=== PATIENT | female | born 1990 | race Caucasian/White ===

== ENCOUNTER 2019-09-28 20:51 | Outpatient (CLI) | payer SELFPAY ==
[2019-09-28] MEDS ORDERED: LACTATED RINGERS 1,000 ML IV ONE (21:14)
[2019-09-28] MEDS ORDERED: BETAMET ACET/BETAMET NA PH 6 MG/ML INJ 5 ML MDV IM ONE (21:15)
[2019-09-28 21:43] VITALS: BP 113/61
== END 2019-09-28 21:43 | disposition home or self-care (01) ==
LOC: TRG 20:51
PROVIDERS: ATTEND Obstetrics & Gynecology
DX: O47.03 False labor before 37 completed weeks of gestation, third trimester (principal); Z3A.33 33 weeks gestation of pregnancy
CPT/HCPCS: 96372; J0702

== ENCOUNTER 2019-09-29 21:28 | Outpatient (CLI) | payer SELFPAY ==
[2019-09-29 22:00] VITALS: BP 106/55
[2019-09-29] MEDS ORDERED: BETAMET ACET/BETAMET NA PH 6 MG/ML INJ 5 ML MDV IM ONE ×2 (22:15→23:00)
== END 2019-09-29 22:35 | disposition home or self-care (01) ==
LOC: TRG 21:28
PROVIDERS: ATTEND Obstetrics & Gynecology
DX: O47.03 False labor before 37 completed weeks of gestation, third trimester (principal); Z3A.33 33 weeks gestation of pregnancy
CPT/HCPCS: 96372; J0702

== ENCOUNTER 2019-10-26 20:32 | Inpatient (IN) | payer OTHER ==
[2019-10-26] MEDS ORDERED: LACTATED RINGERS 1,000 ML IV ONE (22:23)
[2019-10-26 23:50] LABS: Hemoglobin 10.5 gm/dl (10.1-14.3); Mean Corpuscular HGB Conc 34 % (30-34); Mean Corpuscular Volume 83 fl (79-97); Platelet Count 330 K/mm3 (140-440); Red Blood Count 3.72 M/mm3 (3.65-5.03); Red Cell Distribution Width 13.9 % (13.2-15.2)
[2019-10-26] MEDS ORDERED: DINOPROSTONE 10 MG VAG SUPP VG ONE (23:54)
--- NOTE | 2019-10-27 05:23 | History and Physical Report ---
History of Present Illness Date of examination: 10/26/19 Date of admission: 10/26/19 20:32 Chief complaint: 29 y/o presents at 37 wks for an induction r/t cholestasis. Pt admits to active FM and denies vag bleeding. History of present illness: 29 y/o presents at 37 wks for an induction r/t cholestasis. PNC was initiated at [facility] at 8.2 wks. Pt has a hx of hypothyroidism and she is Rubella NI. She admits to active FM and denies vag bleeding. Labs: A pos AB screen neg, RPR NR, HBsAG NR, Rubella NI, HIV neg, stephany/GC neg, H&H 9.8/30.1, pLT 296, 1 hr GTT 117, Pap ASCUS with neg HPV, Total bile acid 52.8 Past History Past Medical History: other (hypothyroidism, heart murmur ) Past Surgical History: no surgical history COAL HAULER History: abnormal PAP smear Family/Genetic History: none Social history: no significant social history - Obstetrical History Expected Date of Delivery: 11/16/19 Actual Gestation: 37 Week(s) 1 Day(s) : 3 Para: 2 Hx # Term Pregnancies: 2 Number of Pregnancies: 0 Spontaneous Abortions: 0 Induced : 0 Number of Living Children: 2 #1 Infant Gender: Male Method of Delivery: Vaginal Complications: none #2 Infant Gender: Male Method of Delivery: Vaginal Complications: none Medications and Allergies Allergies Allergy/AdvReac Type Severity Reaction Status Date / Time No Known Allergies Allergy Verified 09/28/19 21:14 Home Medications Medication Instructions Recorded Confirmed Last Taken Type Ibuprofen [Motrin 600 MG tab] 600 mg PO Q6H #30 tablet 02/26/14 02/06/16 Unknown Rx oxyCODONE /ACETAMINOPHEN [Percocet 2 tab PO Q4H PRN #30 tablet 02/26/14 02/06/16 Unknown Rx 5/325 mg] Ibuprofen [Motrin 800 MG tab] 800 mg PO Q8HR PRN #30 tablet 02/06/16 Unknown Rx oxyCODONE /ACETAMINOPHEN [Percocet 2 tab PO Q6HR PRN #30 tablet 02/06/16 Unknown Rx 5/325] Ferrous Sulfate [Feosol 325 MG tab] 325 mg PO BID #60 tablet 02/07/16 Unknown Rx Active Meds: Active Medications Ferrous Sulfate (Feosol) 325 mg PO BID ISA Lactated Ringer's (Lactated Ringers) 1,000 mls @ 125 mls/hr IV BOLUS ONE Stop: 10/27/19 06:22 Last Admin: 10/27/19 00:27 Dose: 125 mls/hr Documented by: Review of Systems All systems: negative - Vital Signs Vital signs: Vital Signs Pulse BP 65 119/60 10/26/19 22:45 10/26/19 22:45 Temp Pulse Resp BP Pulse Ox 97.9 F 62 18 99/50 10/27/19 01:50 10/27/19 04:17 10/27/19 01:50 10/27/19 04:17 - Physical Exam Breasts: Positive: normal Abdomen: Positive: normal appearance, soft Genitourinary (Female): Positive: normal external genitalia, normal perenium Vulva: both: normal Vagina: Positive: normal moisture Uterus: Positive: enlarged Anus/Rectum: Positive: normal perianal skin Extremities: Positive: normal - Obstetrical FHR: category 1 Uterine Contraction Monitor Mode: External Cervical Dilatation: 1 (per nurse) Cervical Effacement Percentage: 25 station: -3 Uterine Contraction Frequency (min): q Uterine Contraction Pattern: Irregular Uterine Tone Measurement Phase: Resting Uterine Contraction Intensity: Mild Results Result Diagrams: 10/26/19 23:15 All other labs normal. Assessment and Plan A: IUP @ 37wks Cholestasis Hypothyroidism Rubella NI GBS unknown P: Admit to L&D for cervidil induction Continue monitoring Expectant Mtg Tx GBS per hosp protocal Rubella vacine PP POC agrees with plan - Patient Problems (1) IUP (intrauterine ), incidental Current Visit: Yes Status: Acute (2) Cholestasis during Current Visit: Yes Status: Acute (3) Hypothyroidism affecting Current Visit: Yes Status: Acute (4) GBS screening not performed Current Visit: Yes Status: Acute
[2019-10-27] MEDS: LACTATED RINGERS 1,000 ML IV SCH ×2 (06:59→11:03)
[2019-10-27] MEDS: FERROUS SULFATE 325 MG TAB PO SCH ×2 (10:08→23:14)
--- NOTE | 2019-10-27 12:48 | Progress Note ---
Assessment and Plan - Patient Problems (1) Cholestasis during Current Visit: Yes Status: Acute Plan to address problem: Give pt lunch Initiate Cytotec 50 mg po q 4 hrs as tolerated, one hour post cervidil removal Pain meds as desired Anticipate (2) Hypothyroidism affecting Current Visit: Yes Status: Acute Plan to address problem: Resume synthyroid PP Subjective - Subjective Date of service: 10/27/19 Principal diagnosis: IOL Interval history: See admission H & P Patient reports: movement normal, no new complaints, no loss of fluid, no vaginal bleeding, no contractions Objective - Vital Signs Vital Signs: Vital Signs - 12hr 10/27/19 10/27/19 10/27/19 00:47 01:16 01:47 Temperature Pulse Rate 70 66 62 Respiratory Rate Blood Pressure 103/50 100/58 107/55 O2 Sat by Pulse Oximetry 10/27/19 10/27/19 10/27/19 01:50 02:16 03:45 Temperature 97.9 F Pulse Rate 60 68 Respiratory 18 Rate Blood Pressure 108/65 100/56 O2 Sat by Pulse Oximetry 10/27/19 10/27/19 10/27/19 03:46 04:17 06:55 Temperature 98.2 F Pulse Rate 66 62 Respiratory 18 Rate Blood Pressure 93/50 99/50 O2 Sat by Pulse Oximetry 10/27/19 10/27/19 10/27/19 07:06 07:52 07:54 Temperature 99 F Pulse Rate 90 58 L Respiratory Rate Blood Pressure 121/57 O2 Sat by Pulse 98 Oximetry 10/27/19 10/27/19 10/27/19 07:57 08:02 08:07 Temperature Pulse Rate 62 70 76 Respiratory Rate Blood Pressure O2 Sat by Pulse 98 98 98 Oximetry 10/27/19 10/27/19 10/27/19 08:16 08:21 08:26 Temperature Pulse Rate 80 78 60 Respiratory Rate Blood Pressure O2 Sat by Pulse 100 98 97 Oximetry 10/27/19 10/27/19 10/27/19 08:31 08:36 08:41 Temperature Pulse Rate 80 90 61 Respiratory Rate Blood Pressure O2 Sat by Pulse 98 98 98 Oximetry 10/27/19 10/27/19 10/27/19 08:46 08:51 08:56 Temperature Pulse Rate 67 91 H 68 Respiratory Rate Blood Pressure O2 Sat by Pulse 97 97 98 Oximetry 10/27/19 10/27/19 10/27/19 09:01 09:06 09:11 Temperature Pulse Rate 69 65 65 Respiratory Rate Blood Pressure O2 Sat by Pulse 97 98 98 Oximetry 10/27/19 10/27/19 10/27/19 09:16 09:21 09:26 Temperature Pulse Rate 62 98 H 68 Respiratory Rate Blood Pressure O2 Sat by Pulse 97 97 97 Oximetry 10/27/19 10/27/19 10/27/19 09:31 09:36 09:41 Temperature Pulse Rate 65 65 73 Respiratory Rate Blood Pressure O2 Sat by Pulse 98 98 99 Oximetry 10/27/19 10/27/19 10/27/19 09:46 09:51 09:56 Temperature Pulse Rate 72 76 63 Respiratory Rate Blood Pressure O2 Sat by Pulse 99 98 98 Oximetry 10/27/19 10/27/19 10/27/19 10:01 10:06 10:11 Temperature Pulse Rate 58 L 68 60 Respiratory Rate Blood Pressure O2 Sat by Pulse 98 97 98 Oximetry 10/27/19 10/27/19 10/27/19 10:16 10:21 10:26 Temperature Pulse Rate 59 L 61 75 Respiratory Rate Blood Pressure O2 Sat by Pulse 98 98 99 Oximetry 10/27/19 10/27/19 10/27/19 10:31 10:36 10:41 Temperature Pulse Rate 60 65 67 Respiratory Rate Blood Pressure O2 Sat by Pulse 98 98 98 Oximetry 10/27/19 10/27/19 10/27/19 10:46 10:51 10:57 Temperature Pulse Rate 79 99 H 95 H Respiratory Rate Blood Pressure 106/64 O2 Sat by Pulse 98 99 99 Oximetry 10/27/19 10/27/19 10/27/19 11:02 11:07 11:12 Temperature Pulse Rate 75 71 77 Respiratory Rate Blood Pressure O2 Sat by Pulse 97 98 98 Oximetry 10/27/19 10/27/19 10/27/19 11:17 11:22 11:27 Temperature Pulse Rate 63 68 61 Respiratory Rate Blood Pressure O2 Sat by Pulse 98 98 98 Oximetry 10/27/19 10/27/19 10/27/19 11:32 11:37 11:42 Temperature Pulse Rate 68 74 63 Respiratory Rate Blood Pressure O2 Sat by Pulse 97 98 97 Oximetry 10/27/19 10/27/19 10/27/19 11:46 11:47 11:52 Temperature Pulse Rate 63 65 75 Respiratory Rate Blood Pressure 112/68 O2 Sat by Pulse 98 99 Oximetry 10/27/19 10/27/19 10/27/19 11:53 11:57 12:02 Temperature 98.8 F Pulse Rate 64 67 Respiratory Rate Blood Pressure O2 Sat by Pulse 98 98 Oximetry 10/27/19 10/27/19 10/27/19 12:07 12:12 12:17 Temperature Pulse Rate 61 58 L 58 L Respiratory Rate Blood Pressure O2 Sat by Pulse 98 97 98 Oximetry 10/27/19 10/27/19 10/27/19 12:26 12:31 12:36 Temperature Pulse Rate 99 H 91 H 89 Respiratory Rate Blood Pressure O2 Sat by Pulse 99 97 98 Oximetry 10/27/19 12:41 Temperature Pulse Rate 100 H Respiratory Rate Blood Pressure O2 Sat by Pulse 98 Oximetry - Exam Breasts: deferred Cardiovascular: Regular rate Lungs: Normal air movement Abdomen: Present: other (gravid) Uterus: Present: other (S=D) FHR: category 1 Uterine Contraction Monitor Mode: External Cervical Dilatation: 1 Cervical Effacement Percentage: 60 station: -3 Uterine Contraction Frequency (min): 3-6 Uterine Contraction Pattern: Irregular Uterine Tone Measurement Phase: Resting Uterine Contraction Intensity: Mild Extremities: normal - Labs Labs: Laboratory Results - last 24 hr 10/26/19 10/26/19 10/26/19 00:40 23:15 23:15 WBC 7.5 RBC 3.72 Hgb 10.5 Hct 31.0 MCV 83 MCH 28 MCHC 34 RDW 13.9 Plt Count 330 Syphilis IgG Antibody Non-reactive Blood Type A POSITIVE Antibody Screen Negative
[2019-10-27] MEDS ORDERED: miSOPROStol 25 MCG TAB PO PRN (13:30)
[2019-10-27] MEDS ORDERED: AMPICILLIN/NS 2 GM/100 ML 2 GM/100 ML BAG IV ONE (18:32)
[2019-10-27] MEDS ORDERED: LIDOCAINE (2%) 20 MG/1 ML VIAL 20 ML MDV INFILTRATI ONE (18:32)
[2019-10-27] MEDS ORDERED: TERBUTALINE 1 MG/1 ML INJ SUB-Q PRN (18:32)
[2019-10-27] MEDS ORDERED: ePHEDrine SULFATE 50 MG/1 ML INJ IV PRN (18:32)
--- NOTE | 2019-10-27 18:50 | Event Note ---
Date: 10/27/19 Assumed care of patient. Patient is having labor induced due to cholestasis of . Cephalic presentation confirmed with bedside ultrasound. SVE 1.5/50/- 2. Patient is having irregular mild contractions. No leaking of fluid or vaginal bleeding. Category 1 heart rate tracing. Low dose Pitocin ordered for cervical ripening. Discussed this plan with patient and patient states she is in agreement with receiving low dose Pitocin for cervical ripening. Ampicillin ordered for GBS prophylaxis.
[2019-10-27] MEDS ORDERED: OXYTOCIN DRIP 30 UNITS/500 ML BAG IV SCH (19:00)
[2019-10-27] MEDS ORDERED: ACETAMINOPHEN 325 MG TAB PO ONE (20:00)
[2019-10-27] MEDS ORDERED: AMPICILLIN/NS 1 GM/50 ML 1 GM/50 ML BAG IV SCH (22:36)
[2019-10-28] MEDS: LACTATED RINGERS 1,000 ML IV SCH ×4 (04:12→22:00)
--- NOTE | 2019-10-28 08:30 | Progress Note ---
Assessment and Plan A: at 37 weeks gestation. Cholestasis of . Hypothyroidism. P: Pitocin induction of labor. EFM. GBS prophylaxis. Subjective - Subjective Date of service: 10/28/19 Principal diagnosis: at 37 weeks, 2 days gestation Interval history: Had cervical ripening overnight. [place] LOF or VB. Reports active movement. Irregular contractions. Patient reports: movement normal, contractions, no new complaints, no loss of fluid, no vaginal bleeding Objective - Vital Signs Vital Signs: Vital Signs - 12hr 10/27/19 10/27/19 10/27/19 20:33 20:38 20:43 Temperature Pulse Rate 89 92 H 66 Respiratory Rate Blood Pressure 105/59 O2 Sat by Pulse 98 98 98 Oximetry 10/27/19 10/27/19 10/27/19 20:48 20:53 20:58 Temperature Pulse Rate 83 82 81 Respiratory Rate Blood Pressure O2 Sat by Pulse 97 97 98 Oximetry 10/27/19 10/27/19 10/27/19 21:03 21:08 21:13 Temperature Pulse Rate 75 71 72 Respiratory Rate Blood Pressure O2 Sat by Pulse 98 98 99 Oximetry 10/27/19 10/27/19 10/27/19 21:18 21:23 21:28 Temperature Pulse Rate 67 66 66 Respiratory Rate Blood Pressure O2 Sat by Pulse 97 97 97 Oximetry 10/27/19 10/27/19 10/27/19 21:33 21:34 21:35 Temperature Pulse Rate 66 64 75 Respiratory Rate Blood Pressure 88/50 87/51 O2 Sat by Pulse 97 Oximetry 10/27/19 10/27/19 10/27/19 21:36 21:38 21:43 Temperature Pulse Rate 86 87 71 Respiratory Rate Blood Pressure 93/58 O2 Sat by Pulse 97 98 Oximetry 10/27/19 10/27/19 10/27/19 21:48 21:53 21:58 Temperature Pulse Rate 73 66 63 Respiratory Rate Blood Pressure O2 Sat by Pulse 98 97 97 Oximetry 10/27/19 10/27/19 10/27/19 22:03 22:08 22:13 Temperature Pulse Rate 64 63 61 Respiratory Rate Blood Pressure O2 Sat by Pulse 97 97 97 Oximetry 10/27/19 10/27/19 10/27/19 22:18 22:23 22:28 Temperature Pulse Rate 63 54 L 56 L Respiratory Rate Blood Pressure O2 Sat by Pulse 97 98 97 Oximetry 10/27/19 10/27/19 10/27/19 22:33 22:34 22:38 Temperature Pulse Rate 62 56 L 57 L Respiratory Rate Blood Pressure 107/54 O2 Sat by Pulse 97 98 Oximetry 10/27/19 10/27/19 10/27/19 22:43 22:48 22:53 Temperature Pulse Rate 70 72 69 Respiratory Rate Blood Pressure O2 Sat by Pulse 98 97 97 Oximetry 10/27/19 10/27/19 10/27/19 22:58 23:03 23:08 Temperature Pulse Rate 70 59 L 52 L Respiratory Rate Blood Pressure O2 Sat by Pulse 98 97 98 Oximetry 10/27/19 10/27/19 10/27/19 23:13 23:18 23:23 Temperature Pulse Rate 78 64 66 Respiratory Rate Blood Pressure O2 Sat by Pulse 98 98 98 Oximetry 10/27/19 10/27/19 10/27/19 23:28 23:33 23:38 Temperature Pulse Rate 84 62 60 Respiratory Rate Blood Pressure 114/58 O2 Sat by Pulse 99 99 98 Oximetry 10/27/19 10/27/19 10/27/19 23:43 23:48 23:53 Temperature Pulse Rate 57 L 75 57 L Respiratory Rate Blood Pressure O2 Sat by Pulse 98 98 98 Oximetry 10/27/19 10/28/19 10/28/19 23:58 00:00 00:03 Temperature 98.3 F Pulse Rate 81 65 Respiratory 16 Rate Blood Pressure O2 Sat by Pulse 97 97 Oximetry 10/28/19 10/28/19 10/28/19 00:08 00:13 00:22 Temperature Pulse Rate 63 61 76 Respiratory Rate Blood Pressure O2 Sat by Pulse 97 97 99 Oximetry 10/28/19 10/28/19 10/28/19 00:27 00:32 00:33 Temperature Pulse Rate 72 60 64 Respiratory Rate Blood Pressure 103/59 O2 Sat by Pulse 98 98 Oximetry 10/28/19 10/28/19 10/28/19 00:37 00:42 00:47 Temperature Pulse Rate 73 70 64 Respiratory Rate Blood Pressure O2 Sat by Pulse 97 96 97 Oximetry 10/28/19 10/28/19 10/28/19 00:52 00:57 01:02 Temperature Pulse Rate 56 L 59 L 58 L Respiratory Rate Blood Pressure O2 Sat by Pulse 97 97 97 Oximetry 10/28/19 10/28/19 10/28/19 01:07 01:12 01:17 Temperature Pulse Rate 57 L 62 71 Respiratory Rate Blood Pressure O2 Sat by Pulse 98 97 97 Oximetry 10/28/19 10/28/19 10/28/19 01:22 01:27 01:32 Temperature Pulse Rate 67 61 63 Respiratory Rate Blood Pressure O2 Sat by Pulse 97 97 97 Oximetry 10/28/19 10/28/19 10/28/19 01:33 01:37 01:42 Temperature Pulse Rate 65 70 61 Respiratory Rate Blood Pressure 91/50 O2 Sat by Pulse 97 97 Oximetry 10/28/19 10/28/19 10/28/19 01:47 01:52 01:57 Temperature Pulse Rate 60 77 85 Respiratory Rate Blood Pressure O2 Sat by Pulse 97 97 97 Oximetry 10/28/19 10/28/19 10/28/19 02:02 02:07 02:12 Temperature Pulse Rate 61 65 64 Respiratory Rate Blood Pressure O2 Sat by Pulse 97 97 97 Oximetry 10/28/19 10/28/19 10/28/19 02:17 02:22 02:27 Temperature Pulse Rate 57 L 63 61 Respiratory Rate Blood Pressure O2 Sat by Pulse 98 97 97 Oximetry 10/28/19 10/28/19 10/28/19 02:32 02:37 02:42 Temperature Pulse Rate 72 58 L 68 Respiratory Rate Blood Pressure 92/51 O2 Sat by Pulse 97 97 97 Oximetry 10/28/19 10/28/19 10/28/19 02:47 02:52 02:57 Temperature Pulse Rate 61 74 64 Respiratory Rate Blood Pressure O2 Sat by Pulse 97 97 97 Oximetry 10/28/19 10/28/19 10/28/19 03:02 03:07 03:12 Temperature Pulse Rate 81 55 L 74 Respiratory Rate Blood Pressure O2 Sat by Pulse 97 97 97 Oximetry 10/28/19 10/28/19 10/28/19 03:17 03:22 03:27 Temperature Pulse Rate 56 L 70 57 L Respiratory Rate Blood Pressure O2 Sat by Pulse 98 98 97 Oximetry 10/28/19 10/28/19 10/28/19 03:32 03:34 03:37 Temperature Pulse Rate 56 L 48 L 58 L Respiratory Rate Blood Pressure 79/43 O2 Sat by Pulse 98 98 Oximetry 10/28/19 10/28/19 10/28/19 03:42 03:47 03:52 Temperature Pulse Rate 55 L 56 L 63 Respiratory Rate Blood Pressure O2 Sat by Pulse 97 97 97 Oximetry 10/28/19 10/28/19 10/28/19 03:57 03:58 03:59 Temperature Pulse Rate 51 L 51 L 61 Respiratory Rate Blood Pressure 81/43 105/56 O2 Sat by Pulse 97 Oximetry 10/28/19 10/28/19 10/28/19 04:02 04:07 04:12 Temperature Pulse Rate 55 L 53 L 61 Respiratory Rate Blood Pressure O2 Sat by Pulse 97 97 97 Oximetry 10/28/19 10/28/19 10/28/19 04:17 04:22 04:27 Temperature Pulse Rate 54 L 67 60 Respiratory Rate Blood Pressure O2 Sat by Pulse 96 97 96 Oximetry 10/28/19 10/28/19 10/28/19 04:32 04:33 04:37 Temperature Pulse Rate 64 63 50 L Respiratory Rate Blood Pressure 80/44 O2 Sat by Pulse 97 98 Oximetry 10/28/19 10/28/19 10/28/19 04:42 04:47 04:52 Temperature Pulse Rate 60 56 L 55 L Respiratory Rate Blood Pressure O2 Sat by Pulse 97 97 97 Oximetry 10/28/19 10/28/19 10/28/19 04:57 05:00 05:02 Temperature 98.3 F Pulse Rate 52 L 61 Respiratory Rate Blood Pressure O2 Sat by Pulse 97 98 Oximetry 10/28/19 10/28/19 10/28/19 05:07 05:12 05:18 Temperature Pulse Rate 66 79 74 Respiratory Rate Blood Pressure 114/58 101/55 O2 Sat by Pulse 97 Oximetry 10/28/19 10/28/19 10/28/19 05:49 06:18 06:49 Temperature Pulse Rate 56 L 76 68 Respiratory Rate Blood Pressure 96/53 106/55 108/57 O2 Sat by Pulse Oximetry 10/28/19 10/28/19 10/28/19 07:18 07:23 07:28 Temperature Pulse Rate 68 64 62 Respiratory Rate Blood Pressure 95/55 O2 Sat by Pulse 97 97 Oximetry 10/28/19 10/28/19 10/28/19 07:33 07:38 07:43 Temperature Pulse Rate 50 L 63 59 L Respiratory Rate Blood Pressure O2 Sat by Pulse 97 97 97 Oximetry 10/28/19 10/28/1910/27/20 07:48 07:53 07:58 Temperature Pulse Rate 68 64 62 Respiratory Rate Blood Pressure 95/69 O2 Sat by Pulse 96 96 95 Oximetry 10/28/19 08:03 Temperature Pulse Rate 70 Respiratory Rate Blood Pressure O2 Sat by Pulse 96 Oximetry - Exam Abdomen: Present: normal appearance, soft. Absent: distention, tenderness, guarding, rigidity Uterus: Present: normal, fundal height above umbilicus. Absent: tenderness FHR: category 1 Uterine Contraction Monitor Mode: External Uterine Contraction Pattern: Irregular Uterine Contraction Intensity: Mild Extremities: normal
[2019-10-28] MEDS: FERROUS SULFATE 325 MG TAB PO SCH ×2 (09:23→22:08)
[2019-10-28] MEDS ORDERED: OXYTOCIN DRIP 30 UNITS/500 ML BAG IV SCH (10:00)
[2019-10-28] MEDS ORDERED: fentaNYL 100 MCG/2 ML INJ IV ONE (21:46)
[2019-10-28] MEDS: OXYTOCIN 20 UNIT/1000ML DRIP 20 UNITS/1,000 ML BAG IV SCH (23:50)
[2019-10-29] MEDS ORDERED: HYDROcodone/ACETAMINOPHEN 5-325 MG TAB PO PRN (00:40)
[2019-10-29] MEDS ORDERED: LANOLIN/ZINC/DIMETHICONE (LANSINOH) 7 GM TP PRN (00:40)
[2019-10-29] MEDS ORDERED: MAGNESIUM HYDROXIDE (MOM) ORAL LIQD UDC PO PRN (00:40)
[2019-10-29] MEDS ORDERED: WITCH HAZEL/ GLYCERIN PAD TP PRN (00:40)
--- NOTE | 2019-10-29 00:48 | Procedure Note ---
OB Delivery Note - Delivery Date of Delivery: 10/28/19 Surgeon: VIRGIL HOLLIDAY Estimated blood loss: 300cc - Vaginal Delivery presentation: vertex Delivery position: OA Intrapartum events: shoulder dystocia, other(please specify) (variable FHR decelerations) Delivery induction: oxytocin Delivery monitor: external FHT, external uterine Route of delivery: Delivery placenta: spontaneous Delivery cord: 3 umbilical vessels Episiotomy: none Delivery laceration: none Anesthesia: none Delivery comments: Spontaneous vaginal delivery at 11:29 of liveborn male weighing 6 lb. 8 oz. over intact perineum with apgars of 7/9. Deep variable FHR decelerations noted just prior to delivery. Left anterior shoulder dystocia noted at delivery, resolved with Brock maneuver and delivery of posterior arm. 3 vessel cord double clamped and cut. Baby taken to radiant warmer for suctioning and evaluation. Spontaneous cry and respirations. Spontaneous delivery of intact placenta and membranes by coughlin mechanism at 11:50. EBL 300 cc. Pitocin to IV fluids after delivery of placenta. Fundus firm and midline at 2 FB below umbilicus. No lacerations noted. Vaginal sweep negative. Sponge count and instrument count correct. Mother and baby stable. Baby is moving all extremities well.
[2019-10-29] MEDS: OXYTOCIN 20 UNIT/1000ML DRIP 20 UNITS/1,000 ML BAG IV SCH (01:14)
[2019-10-29] MEDS: IBUPROFEN 600 MG TAB PO SCH ×3 (03:10→16:02)
[2019-10-29] MEDS: DOCUSATE SODIUM 100 MG CAP PO SCH ×2 (10:22→22:05)
[2019-10-29 17:03] LABS: Hematocrit 23.3 % (30.3-42.9); Hemoglobin 7.9 gm/dl (10.1-14.3)
--- NOTE | 2019-10-29 21:16 | Progress Note ---
Assessment and Plan A: day of delivery. Anemia. P: Supplement with iron. Continue current management. Subjective - Subjective Date of service: 10/29/19 Principal diagnosis: day of delivery Interval history: day of delivery. Doing well. Patient reports small amount of lochia. Denies pain. Patient reports: appetite normal, voiding normally, pain well controlled, flatus, ambulating normally, no dizzy ambulation, no nauseated [place]: doing well Objective - Vital Signs Latest vital signs: Vital Signs Temp Pulse Resp BP Pulse Ox 10/29/19 20:45 18 10/29/19 16:19 98.1 F 62 16 109/69 99 10/29/19 12:18 98.1 F 97 H 20 113/55 97 10/29/19 08:00 98.5 F 73 20 122/76 100 10/29/19 03:10 18 10/29/19 03:08 99.2 F 73 20 120/66 100 10/29/19 00:53 73 118/59 10/28/19 23:58 98.4 F 107 H 18 112/68 100 10/28/19 23:38 87 94/53 10/28/19 23:10 95 H 128/61 10/28/19 22:59 86 100 10/28/19 22:54 82 71 L 10/28/19 22:49 86 100 10/28/19 22:44 83 100 10/28/19 22:39 65 100 10/28/19 22:38 76 126/69 10/28/19 22:34 69 99 10/28/19 22:29 56 L 99 10/28/19 22:24 58 L 97 10/28/19 22:19 70 98 10/28/19 22:14 76 94 10/28/19 22:12 75 94 10/28/19 22:09 100 H 144/82 97 10/28/19 22:04 67 18 99 10/28/19 21:59 75 99 10/28/19 21:54 53 L 98 10/28/19 21:49 57 L 99 10/28/19 21:44 55 L 97 10/28/19 21:39 53 L 97 10/28/19 21:38 53 L 116/71 10/28/19 21:34 64 97 10/28/19 21:29 55 L 98 10/28/19 21:24 69 98 10/28/19 21:19 56 L 97 10/28/19 21:14 79 97 10/28/19 21:09 59 L 122/66 96 10/28/19 21:04 62 96 10/28/19 20:59 60 97 10/28/19 20:54 52 L 97 10/28/19 20:49 58 L 96 10/28/19 20:44 68 98 10/28/19 20:39 58 L 117/75 97 10/28/19 20:34 65 98 10/28/19 20:29 56 L 99 10/28/19 20:23 65 98 10/28/19 20:18 58 L 98 Intake and Output 10/29/19 10/29/19 10/29/19 07:59 15:59 23:59 Intake Total 480 240 Output Total Balance 480 240 Intake: IV PITOCin/NS 20 UNIT/1000ML DRIP 20 units In 1,000 ml @ 125 mls/hr IV DIRECT ISA Rx#:[id number] Oral 480 240 Output: Urine Void Other: Total, Intake Amount 240 240 Total, Output Amount # Voids Void 1 1 Estimated Blood Loss - Exam Abdomen: Present: normal appearance, soft. Absent: distention, tenderness, guarding, rigidity Uterus: Present: normal, firm, fundal height below umbilicus. Absent: bogginess, tenderness Extremities: Present: normal. Absent: tenderness, edema - Labs Labs: Abnormal lab results 10/29/19 Range/Units 16:37 Hgb 7.9 L (10.1-14.3) gm/dl Hct 23.3 L D (30.3-42.9) %
[2019-10-29] MEDS ORDERED: FERROUS SULFATE 325 MG TAB PO SCH (22:00)
[2019-10-30] MEDS ORDERED: TETANUS,DIPH,PERTUSS(ACELL) VACCINE 0.5 ML SYRINGE IM ONE (06:00)
[2019-10-30] MEDS ORDERED: MEASLES, MUMPS & RUBELLA 12,500 UNIT/0.5 ML VACCINE SUB-Q ONE (06:00)
[2019-10-30] MEDS: IBUPROFEN 600 MG TAB PO SCH ×3 (06:07→13:19)
[2019-10-30] MEDS ORDERED: IRON DEXTRAN COMPLEX 100 MG/2 ML INJ IM SCH (09:30)
[2019-10-30] MEDS ORDERED: FLU VACC QUAD 2019-20 (3 YR UP)/PF 60 MCG/0.5 ML SYRINGE IM ONE (12:00)
--- NOTE | 2019-10-30 13:06 | Progress Note ---
Assessment and Plan - Patient Problems (1) Status post normal vaginal delivery Current Visit: Yes Status: Acute Plan to address problem: PPD 2 - stable Continue routine orders Discharge to home today Follow-up at [facility] as needed or in 6 weeks for exam (2) Single live Current Visit: Yes Status: Acute (3) Anemia due to blood loss, acute Current Visit: Yes Status: Acute Plan to address problem: Asymptomatic Infed 100mg IM x1 ordered Continue ferrous sulfate 325mg PO BID (4) Hypothyroidism affecting Current Visit: Yes Status: Acute Plan to address problem: Continue outpatient management Follow up with PCP or Endocrinology Subjective - Subjective Date of service: 10/30/19 Principal diagnosis: day of delivery Interval history: see H&P, OB Progress Notes, Event Note, OB Delivery Procedure Note, PP/CUSTOMER DEVELOPMENT REPRESENTATIVE Progress Note Patient reports: appetite normal, voiding normally, pain well controlled, ambulating normally, other (denies palpitations or SOB), no dizzy ambulation [place]: doing well, other (breast and bottle feeding) Objective - Vital Signs Latest vital signs: Vital Signs Temp Pulse Resp BP Pulse Ox 10/30/19 08:26 97.7 F 64 18 97/46 99 10/30/19 07:01 18 10/30/19 06:07 18 10/30/19 00:31 97.9 F 60 16 104/55 100 10/30/19 00:00 18 10/29/19 21:45 18 10/29/19 20:45 18 10/29/19 16:19 98.1 F 62 16 109/69 99 Intake and Output 10/29/19 10/30/19 10/30/19 23:59 07:59 15:59 Intake Total 240 720 Balance 240 720 Intake: Oral 240 Intake, Free Water 720 Other: Total, Intake Amount 240 # Voids Void 1 1 - Exam Cardiovascular: Present: Regular rate Lungs: Present: Clear to auscultation Abdomen: Present: normal appearance, soft Vulva: both: normal Uterus: Present: normal, firm, fundal height below umbilicus Extremities: Present: normal Comments: scant lochia - Labs Labs: Abnormal lab results 10/29/19 Range/Units 16:37 Hgb 7.9 L (10.1-14.3) gm/dl Hct 23.3 L D (30.3-42.9) %
--- NOTE | 2019-10-30 13:18 | Discharge Summary ---
Providers - Providers Date of Admission: 10/26/19 20:32 Date of discharge: 10/30/19 Attending physician: MARZENA BLAIR MD Primary care physician: SAMEER LATHAM Hospitalization Reason for admission: induction of labor (secondary to cholestasis), IUP at term Delivery: Episiotomy: none Laceration: none Other procedures: none complications: none Discharge diagnosis: IUP at term delivered [place] baby: male Hospital course: Uncomplicated Condition at discharge: Stable Disposition: DC-01 TO HOME OR SELFCARE - Discharge Diagnoses (1) Status post normal vaginal delivery Status: Acute (2) Single live Status: Acute (3) Anemia due to blood loss, acute Status: Acute Comment: Continue taking ferrous sulfate 325mg by mouth twice daily Eat iron-rich foods (4) Hypothyroidism affecting Status: Acute Plan - Discharge Medications Prescriptions: Ferrous Sulfate [Feosol 325 MG tab] 325 mg PO BID #60 tablet - Provider Discharge Summary Activity: routine, no sex for 6 weeks, no heavy lifting 4 weeks, no strenuous exercise Diet: routine Instructions: routine Additional instructions: [] Smoking cessation referral if applicable(refer to patient education folder for contact #) [] Refer to [facility]'s [facility] Booklet Call your doctor immediately for: * Fever > 100.5 * Heavy vaginal bleeding ( >1 pad per hour) * Severe persistent headache * Shortness of breath * Reddened, hot, painful area to leg or breast * Drainage or odor from incision. * Keep incision clean and dry at all times and follow doctor's instructions regarding bathing/showering - Follow up plan Follow up: SAMEER LATHAM MD [Primary Care Provider] - 6 Weeks (Follow-up at [facility] as needed or in 6 weeks for exam)
[2019-10-30] MEDS: DOCUSATE SODIUM 100 MG CAP PO SCH (13:19)
[2019-10-30 13:32] VITALS: BP 94/47
== END 2019-10-30 15:50 | disposition home or self-care (01) | DRG 805 ==
LOC: LD 20:32 → OB 10-29 03:14
PROVIDERS: ADMIT Obstetrics & Gynecology; ATTEND Obstetrics & Gynecology
PROC: 10E0XZZ Delivery of Products of Conception, External Approach (ICD-10-PCS; principal; 2019-10-29)
PROC: 3E033VJ Introduction of Other Hormone into Peripheral Vein, Percutaneous Approach (ICD-10-PCS; 2019-10-29)
PROC: 3E0234Z Introduction of Serum, Toxoid and Vaccine into Muscle, Percutaneous Approach (ICD-10-PCS; 2019-10-30)
PROC: 3E0134Z Introduction of Serum, Toxoid and Vaccine into Subcutaneous Tissue, Percutaneous Approach (ICD-10-PCS; 2019-10-30)
DX: O26.62 Liver and biliary tract disorders in childbirth (principal); K83.1 Obstruction of bile duct; Z37.0 Single live birth; D62 Acute posthemorrhagic anemia; O98.52 Other viral diseases complicating childbirth; O76 Abnormality in fetal heart rate and rhythm complicating labor and delivery; O99.284 Endocrine, nutritional and metabolic diseases complicating childbirth; O66.0 Obstructed labor due to shoulder dystocia; O99.03 Anemia complicating the puerperium; Z3A.37 37 weeks gestation of pregnancy; Z23 Encounter for immunization; B06.9 Rubella without complication; E03.9 Hypothyroidism, unspecified
CPT/HCPCS: 36415; 59200; 85014; 85018; 85027; 86592; 86850; 86900; 86901; 90686; 90715; G0378; A6250; J1750; J2590; J3010; J7120